=== PATIENT | male | born 1985 | race Caucasian/White ===

== ENCOUNTER 2018-09-23 17:50 | Emergency (ER) | payer SELFPAY ==
[~2018-09-23] VITALS: Wt 127.0 kg
[~2018-09-23 17:50] MED LIST: FLOMAX0.4 MG PO; HYDROCODONE BIT1 T11 PO; MEDROL DOSEPAK4 MG PO; Zofran4 MG PO
[2018-09-23] MEDS ORDERED: CLINDAMYCIN HC300 MG PO (18:09)
[2018-09-23] MEDS ORDERED: ANAPROX DS550 MG PO (18:09)
== END 2018-09-23 18:39 | disposition home or self-care (01) ==
LOC: ED 17:50
DX: K04.7 Periapical abscess without sinus (principal); F17.220 Nicotine dependence, chewing tobacco, uncomplicated; Z88.6 Allergy status to analgesic agent; Z88.0 Allergy status to penicillin